=== PATIENT | female | born 1995 | race Caucasian/White ===

== ENCOUNTER 2017-06-20 18:30 | Outpatient (CLI) | payer OTHER ==
[2017-06-20 20:02] LABS: ADD MAN DIFF? NO
[2017-06-20 20:07] LABS: BASOPHILS % 0.3 % (0.0-2.0); EOSINOPHILS # 0.1 10^3/ul (0.0-0.5); EOSINOPHILS % 0.9 % (0.0-7.0); HEMATOCRIT 33.5 % (37.0-47.0); HEMOGLOBIN 11.4 g/dl (12.0-16.0); LYMPHOCYTES # 2.7 10^3/ul (0.8-2.9); LYMPHOCYTES % 23.5 % (15.0-51.0); MEAN CORPUSCULAR HEMOGLOBIN 30.6 pg (29.0-33.0); MEAN CORPUSCULAR VOLUME 90.1 fl (82.0-101.0); MEAN PLATELET VOLUME 10.4 fl (7.4-10.4); MONOCYTE # 0.5 10^3/ul (0.3-0.9); MONOCYTES % 4.1 % (0.0-11.0); NEUTROPHIL # 8.1 10^3/ul (1.6-7.5); NEUTROPHILS % 70.7 % (39.0-77.0); PLATELET COUNT 279 10^3/UL (140-415); RED BLOOD COUNT 3.72 10^6/ul (4.20-5.40); RED CELL DISTRIBUTION WIDTH 12.9 % (11.5-14.5)
[2017-06-20 20:07] LABS: WHITE BLOOD COUNT 11.4 10^3/ul (4.8-10.8)
[2017-06-20 20:16] LABS: ADD UMIC NO; UR ASCORBIC ACID NEGATIVE (NEGATIVE); UR BILIRUBIN (Dip) NEGATIVE (NEGATIVE); UR BLOOD (Dip) NEGATIVE (NEGATIVE); UR CLARITY CLEAR (CLEAR); UR COLOR STRAW (YELLOW); UR GLUCOSE (Dip) NEGATIVE (NEGATIVE); UR KETONES (Dip) NEGATIVE (NEGATIVE); UR LEUKOCYTE ESTERASE (Dip) NEGATIVE Leu/ul (NEGATIVE); UR NITRITE (Dip) NEGATIVE (NEGATIVE); UR SPECIFIC GRAVITY (Dip) 1.008 (1.003-1.030); UR TOTAL PROTEIN (Dip) NEGATIVE (NEGATIVE); UR UROBILINOGEN (Dip) NEGATIVE (NEGATIVE)
== END 2017-06-20 20:40 | disposition home or self-care (01) ==
LOC: OBT 18:30 → L-D 18:32 → OBT 20:40
DX: O26.893 Other specified pregnancy related conditions, third trimester (principal); Z3A.31 31 weeks gestation of pregnancy; R10.2 Pelvic and perineal pain
CPT/HCPCS: 76817; 81003; 85025; 87086

== ENCOUNTER 2017-07-31 11:39 | Inpatient (IN) | payer OTHER ==
[~2017-07-31 11:39] MED LIST: OXYTOCIN 30 UNITS/LR 500 ML BAG IV
[2017-07-31] MEDS ORDERED: LACTATED RINGER'S 1,000 ML IV ×2 (13:37→15:40)
[2017-07-31] MEDS: LACTATED RINGER'S 1,000 ML IV ×2 (13:46→23:37)
[2017-07-31 13:53] LABS: ADD MAN DIFF? NO
[2017-07-31 13:56] LABS: BASOPHILS % 0.3 % (0.0-2.0); EOSINOPHILS % 0.2 % (0.0-7.0); HEMOGLOBIN 12.8 g/dl (12.0-16.0); LYMPHOCYTES # 2.9 10^3/ul (0.8-2.9); LYMPHOCYTES % 26.4 % (15.0-51.0); MEAN CORPUSCULAR HEMOGLOBIN 31.4 pg (29.0-33.0); MEAN CORPUSCULAR HGB CONC 34.6 g/dl (32.0-37.0); MEAN CORPUSCULAR VOLUME 90.7 fl (82.0-101.0); MEAN PLATELET VOLUME 10.6 fl (7.4-10.4); MONOCYTE # 0.5 10^3/ul (0.3-0.9); MONOCYTES % 4.2 % (0.0-11.0); NEUTROPHIL # 7.6 10^3/ul (1.6-7.5); NEUTROPHILS % 68.2 % (39.0-77.0); PLATELET COUNT 283 10^3/UL (140-415); RED BLOOD COUNT 4.08 10^6/ul (4.20-5.40); RED CELL DISTRIBUTION WIDTH 13.5 % (11.5-14.5)
[2017-07-31 13:56] LABS: WHITE BLOOD COUNT 11.1 10^3/ul (4.8-10.8)
[2017-07-31 14:13] LABS: ADD UMIC YES; UR ASCORBIC ACID 20 mg/dL (NEGATIVE); UR BACTERIA FEW /HPF (NONE SEEN); UR BILIRUBIN (Dip) NEGATIVE (NEGATIVE); UR BLOOD (Dip) NEGATIVE (NEGATIVE); UR CLARITY CLEAR (CLEAR); UR COLOR YELLOW (YELLOW); UR GLUCOSE (Dip) NEGATIVE (NEGATIVE); UR KETONES (Dip) NEGATIVE (NEGATIVE); UR LEUKOCYTE ESTERASE (Dip) 1+ Leu/ul (NEGATIVE); UR NITRITE (Dip) NEGATIVE (NEGATIVE); UR RBC 0 /HPF (0-5); UR SQUAMOUS EPITHELIAL CELL FEW /HPF (FEW); UR TOTAL PROTEIN (Dip) NEGATIVE (NEGATIVE); UR UROBILINOGEN (Dip) NEGATIVE (NEGATIVE); UR WBC 0 /HPF (0-5)
[2017-07-31 14:24] LABS: INR 0.88; PARTIAL THROMBOPLASTIN TIME 26.2 Sec (25.0-35.0); PT RATIO 0.9
[2017-07-31] MEDS ORDERED: MISOPROSTOL 200 MCG TAB PR ×2 (16:00→22:00)
[2017-07-31] MEDS ORDERED: OXYTOCIN 30 UNITS/LR 500 ML IV ×3 (16:00→22:00)
[2017-07-31] MEDS: CLINDAMYCIN 900 MG/D5W (PMX) 50 ML IV (16:00)
[2017-07-31] MEDS ORDERED: CARBOPROST 250 MCG INJ IM ×2 (16:00→22:00)
[2017-07-31] MEDS ORDERED: METHYLERGONOVINE 0.2 MG INJ IM ×2 (16:00→22:00)
[2017-07-31 16:53] LABS: HEPATITIS B SURFACE ANTIGEN NEGATIVE (NEGATIVE)
[2017-07-31] MEDS ORDERED: PHENYLephrine (100 MCG/ML) 5ML SYG (17:43)
[2017-07-31] MEDS ORDERED: OXYTOCIN 10 UNIT INJ (17:43)
[2017-07-31] MEDS ORDERED: BUPIVACAINE 0.75%/DEXT (SPINAL) 2 ML INJ (17:43)
[2017-07-31] MEDS ORDERED: ONDANSETRON 4 MG INJ (17:43)
[2017-07-31] MEDS ORDERED: morphine SULFATE/PF (10 MG/10 ML) INJ (17:43)
[2017-07-31] MEDS: OXYTOCIN 30 UNITS/LR 500 ML IV (19:39)
[2017-07-31] MEDS ORDERED: DIPHENHYDRAMINE 50 MG INJ IV (20:00)
[2017-07-31] MEDS ORDERED: NALOXONE (0.4 MG/ML) INJ IV (20:00)
[2017-07-31] MEDS: ONDANSETRON 4 MG INJ IV (20:29)
[2017-07-31] MEDS: KETOROLAC 30 MG INJ IV (20:37)
[2017-07-31 21:29] LABS: RAPID PLASMA REAGIN NONREACTIVE (NR)
[2017-07-31] MEDS ORDERED: ONDANSETRON 4 MG INJ IV (22:00)
[2017-07-31] MEDS ORDERED: ZOLPIDEM 5 MG TAB PO (22:00)
[2017-08-01] MEDS: morphine 2 MG INJ IV ×3 (00:45→14:22)
[2017-08-01] MEDS: KETOROLAC 30 MG INJ IV ×2 (05:46→11:27)
[2017-08-01] MEDS: LACTATED RINGER'S 1,000 ML IV ×2 (06:35→15:12)
[2017-08-01 08:59] LABS: ADD MAN DIFF? NO
[2017-08-01 09:06] LABS: WHITE BLOOD COUNT 12.1 10^3/ul (4.8-10.8)
[2017-08-01 09:06] LABS: BASOPHILS % 0.2 % (0.0-2.0); EOSINOPHILS % 0.2 % (0.0-7.0); HEMATOCRIT 31.8 % (37.0-47.0); HEMOGLOBIN 10.8 g/dl (12.0-16.0); LYMPHOCYTES # 2.8 10^3/ul (0.8-2.9); LYMPHOCYTES % 22.9 % (15.0-51.0); MEAN CORPUSCULAR HEMOGLOBIN 30.8 pg (29.0-33.0); MEAN CORPUSCULAR VOLUME 90.6 fl (82.0-101.0); MEAN PLATELET VOLUME 10.7 fl (7.4-10.4); MONOCYTE # 0.6 10^3/ul (0.3-0.9); MONOCYTES % 5.3 % (0.0-11.0); NEUTROPHIL # 8.6 10^3/ul (1.6-7.5); PLATELET COUNT 248 10^3/UL (140-415); RED BLOOD COUNT 3.51 10^6/ul (4.20-5.40); RED CELL DISTRIBUTION WIDTH 13.5 % (11.5-14.5)
[2017-08-01] MEDS: LANOLIN 7 GM TUBE TOP (11:28)
[2017-08-01] MEDS ORDERED: ONDANSETRON 4 MG INJ IV (17:45)
[2017-08-01] MEDS ORDERED: DIPHENHYDRAMINE 50 MG INJ IV (17:45)
[2017-08-01] MEDS ORDERED: OXYCODONE/ACETAMINOPHEN (5/325) TAB PO (17:45)
[2017-08-01] MEDS: IBUPROFEN 600 MG TAB PO ×2 (18:18→23:50)
[2017-08-01] MEDS: OXYCODONE/ACETAMINOPHEN (5/325) TAB PO ×2 (18:25→22:41)
[2017-08-01] MEDS: SENNA/DOCUSATE NA (8.6MG/50MG) TAB PO (21:12)
[2017-08-02] MEDS: LACTATED RINGER'S 1,000 ML IV ×3 (01:25→13:19)
[2017-08-02] MEDS: OXYCODONE/ACETAMINOPHEN (5/325) TAB PO ×5 (04:29→23:41)
[2017-08-02] MEDS: IBUPROFEN 600 MG TAB PO ×4 (06:37→23:41)
[2017-08-02] MEDS: SENNA/DOCUSATE NA (8.6MG/50MG) TAB PO ×2 (09:02→21:18)
[2017-08-03] MEDS: LACTATED RINGER'S 1,000 ML IV ×2 (00:42→05:47)
[2017-08-03] MEDS: OXYCODONE/ACETAMINOPHEN (5/325) TAB PO ×3 (04:16→14:44)
[2017-08-03] MEDS: IBUPROFEN 600 MG TAB PO ×2 (06:05→11:40)
[2017-08-03] MEDS: SENNA/DOCUSATE NA (8.6MG/50MG) TAB PO (08:50)
[2017-08-03] MEDS: DIPHTH/TET/ACEL PERTUSS (ADULT) 0.5 ML VIAL IM* (09:00)
== END 2017-08-03 16:50 | disposition home or self-care (01) | DRG 766 ==
LOC: OBT 11:39 → L-D 11:40 → OBT 15:40 → L-D 15:40 → PP1 21:56
PROVIDERS: Obstetrics & Gynecology
PROC: 10D00Z1 Extraction of Products of Conception, Low, Open Approach (ICD-10-PCS; principal; 2017-07-31 17:00)
DX: O41.03X0 Oligohydramnios, third trimester, not applicable or unspecified (principal); O34.211 Maternal care for low transverse scar from previous cesarean delivery; O69.2XX0 Labor and delivery complicated by other cord entanglement, with compression, not applicable or unspecified; Z37.0 Single live birth; Z3A.37 37 weeks gestation of pregnancy
CPT/HCPCS: 76818; 81001; 85025; 85610; 85730; 86592; 86885; 86900; 86901; 87340; 94760; 99464

== ENCOUNTER 2017-08-10 23:07 | Emergency (ER) | payer OTHER ==
[2017-08-11] MEDS: SOD CHLORIDE 0.9% 1,000 ML IV (01:19)
[2017-08-11] MEDS: morphine 4 MG/ML VIAL IV (01:19)
[2017-08-11] MEDS: ONDANSETRON 4 MG INJ IV (01:19)
[2017-08-11 01:42] LABS: ADD MAN DIFF? NO
[2017-08-11 01:51] LABS: WHITE BLOOD COUNT 10.6 10^3/ul (4.8-10.8)
[2017-08-11 01:51] LABS: BASOPHIL # 0.1 10^3/ul (0.0-0.1); BASOPHILS % 0.5 % (0.0-2.0); EOSINOPHILS # 0.2 10^3/ul (0.0-0.5); EOSINOPHILS % 1.5 % (0.0-7.0); HEMATOCRIT 41.3 % (37.0-47.0); HEMOGLOBIN 13.7 g/dl (12.0-16.0); LYMPHOCYTES # 3.1 10^3/ul (0.8-2.9); LYMPHOCYTES % 29.1 % (15.0-51.0); MEAN CORPUSCULAR HEMOGLOBIN 30.6 pg (29.0-33.0); MEAN CORPUSCULAR HGB CONC 33.2 g/dl (32.0-37.0); MEAN CORPUSCULAR VOLUME 92.4 fl (82.0-101.0); MEAN PLATELET VOLUME 9.3 fl (7.4-10.4); MONOCYTE # 0.5 10^3/ul (0.3-0.9); MONOCYTES % 4.5 % (0.0-11.0); NEUTROPHIL # 6.8 10^3/ul (1.6-7.5); NEUTROPHILS % 64.1 % (39.0-77.0); PLATELET COUNT 547 10^3/UL (140-415); RED BLOOD COUNT 4.47 10^6/ul (4.20-5.40); RED CELL DISTRIBUTION WIDTH 12.7 % (11.5-14.5)
[2017-08-11 02:07] LABS: ADD UMIC YES; UR ASCORBIC ACID 20 mg/dL (NEGATIVE); UR BACTERIA FEW /HPF (NONE SEEN); UR BILIRUBIN (Dip) NEGATIVE (NEGATIVE); UR BLOOD (Dip) 3+ mg/dL (NEGATIVE); UR CLARITY SLIGHTLY CLOUDY (CLEAR); UR COLOR YELLOW (YELLOW); UR GLUCOSE (Dip) NEGATIVE (NEGATIVE); UR KETONES (Dip) NEGATIVE (NEGATIVE); UR LEUKOCYTE ESTERASE (Dip) 3+ Leu/ul (NEGATIVE); UR NITRITE (Dip) NEGATIVE (NEGATIVE); UR RBC 10 /HPF (0-5); UR SPECIFIC GRAVITY (Dip) 1.014 (1.003-1.030); UR SQUAMOUS EPITHELIAL CELL FEW /HPF (FEW); UR TOTAL PROTEIN (Dip) NEGATIVE (NEGATIVE); UR UROBILINOGEN (Dip) NEGATIVE (NEGATIVE); UR WBC 50 /HPF (0-5)
[2017-08-11 02:09] LABS: ALANINE AMINOTRANSFERASE 25 IU/L (13-69); ALBUMIN 4.1 g/dl (3.3-4.9); ALKALINE PHOSPHATASE 105 IU/L (42-121); ANION GAP 23 (8-16); ASPARTATE AMINO TRANSFERASE 21 IU/L (15-46); BILIRUBIN,INDIRECT 0.2 mg/dl (0-1.1); BILIRUBIN,TOTAL 0.2 mg/dl (0.2-1.3); BLOOD UREA NITROGEN 14 mg/dl (7-20); CALCIUM 9.6 mg/dl (8.4-10.2); CARBON DIOXIDE 28 mmol/L (21-31); CHLORIDE 102 mmol/L (97-110); CREATININE 0.69 mg/dl (0.44-1.00); GLUCOSE 89 mg/dl (70-220); POTASSIUM 4.7 mmol/L (3.5-5.1); SODIUM 148 mmol/L (135-144); TOTAL PROTEIN 7.8 g/dl (6.1-8.1)
[2017-08-11] MEDS: IOHEXOL 300MG/ML 150 ML BTL (02:28)
[2017-08-11] MEDS: SOD CHLORIDE 0.9% 100 ML (02:28)
[2017-08-11 02:30] LABS: LIPASE 65 U/L (23-300)
[2017-08-11 02:30] LABS: AMYLASE 70 U/L (11-123)
[2017-08-11] MEDS: DIPHENHYDRAMINE 50 MG INJ IV (03:03)
[2017-08-11] MEDS: CEFTRIAXONE 1 GM/50 ML (PMX) 50 ML IVPB (03:03)
== END 2017-08-11 03:58 | disposition home or self-care (01) ==
LOC: FTE 08-11 03:58
DX: O86.20 Urinary tract infection following delivery, unspecified (principal); O90.2 Hematoma of obstetric wound; B96.89 Other specified bacterial agents as the cause of diseases classified elsewhere
CPT/HCPCS: 74177; 80053; 81001; 81025; 82150; 83690; 85025; 96374; 96375; 99285-25